=== PATIENT | male | born 1960 | race Caucasian/White ===

== ENCOUNTER 2016-07-19 09:13 | Day surgery (SDC) | payer BC ==
[~2016-07-19 09:13] MED LIST: PROPOFOL INJ 200 MG/20 ML VIAL IV ONE
[2016-07-19 11:37] VITALS: BP 117/77
--- NOTE | 2016-07-19 14:26 | Operative Report ---
Operative Report DATE OF SURGERY: 07/19/16 Operative Report: The risks, benefits and alternatives are discussed with the patient in detail to include the risk of bleeding, perforation requiring surgery are explained to the patient in detail and informed consent is obtained the patient is brought back to the endoscopy suite and placed in the left lateral decubital position time out is called and Propofol sedation provided A rectal exam is performed and did not reveal any masses or fissures an olympus videoscope is inserted into the patient's rectum the scope is then guided carefully to the cecum the cecum is identified by the usual anatomical landmarks including the ileocecal valve and the appendiceal orifice The scope is then withdrawn the the various segments of the colon including the ascending colon, hepatic flexure, transverse colon, splenic flexure, descending colon and finally in the rectosigmoid portions of the colon retroflexion is done PREOPERATIVE DIAGNOSIS: personal history of colon polyps POSTOPERATIVE DIAGNOSIS: Right side colon sessile polyp, removed via biopsy forceps. internal hemorrhoids. diverticulosis OPERATION: colonoscopy with biopsy SURGEON: SARAH DUEÑAS ANESTHESIA: LMAC TISSUE REMOVED OR ALTERED: colon specimen is obtained COMPLICATIONS: none ESTIMATED BLOOD LOSS: none INTRAOPERATIVE FINDINGS: as noted above PROCEDURE: Patient tolerated the procedure well did not have any post procedure complications patient is discharged in good condition Discharge date: 07/19/16 Discharge diet: regular Discharge activity: regular 5 year surveillance colonoscopy patient is instructed to call the office or go to the ED if having any problems wait on biopsies patient does have a 2-3 week follow up
== END 2016-07-19 11:45 | disposition home or self-care (01) ==
LOC: END 09:13
PROVIDERS: ATTEND Internal Medicine Gastroenterology
PROC: 0DBL8ZX Excision of Transverse Colon, Via Natural or Artificial Opening Endoscopic, Diagnostic (ICD-10-PCS; principal; 2016-07-19 12:00)
DX: D12.3 Benign neoplasm of transverse colon (principal); K57.30 Diverticulosis of large intestine without perforation or abscess without bleeding; K64.8 Other hemorrhoids; E11.9 Type 2 diabetes mellitus without complications; M19.90 Unspecified osteoarthritis, unspecified site; I10 Essential (primary) hypertension; E78.5 Hyperlipidemia, unspecified; Z79.899 Other long term (current) drug therapy; Z79.82 Long term (current) use of aspirin; Z79.84 Long term (current) use of oral hypoglycemic drugs; Z87.442 Personal history of urinary calculi; Z79.1 Long term (current) use of non-steroidal anti-inflammatories (NSAID); Z88.8 Allergy status to other drugs, medicaments and biological substances; Z88.1 Allergy status to other antibiotic agents
CPT/HCPCS: 45380; 82962; 88305 ×2; J2704; 810